=== PATIENT | female | born 1970 | race Caucasian/White ===

== ENCOUNTER 2018-12-09 11:44 | Emergency (ER) | payer OTHER ==
[2018-12-09 11:57] VITALS: BP 144/95; PULSE 74; RESP 20; TEMP 98.3; O2SAT 98
--- NOTE | 2018-12-09 12:36 | C.PDOC ---
History Of Present Illness The patient reports 2 weeks vaginal pain and dysuria, which is associated with vaginal discharge. Patient reports that she went to the [facility] for antibiotics and took them for 5 days without relief. Patient does not remember the name of the medications. Denies fever, vomiting, diarrhea, hematuria. Time Seen by Provider: 12/09/18 12:09 Chief Complaint (Nursing): Female Genitourinary History Per: Patient History/Exam Limitations: no limitations Current Symptoms Are (Timing): Still Present Severity: Mild Quality Of Discomfort: Burning Alleviating Factors: None Recent travel outside of the [place]: No Past Medical History Reviewed: Historical Data, Nursing Documentation, Vital Signs Vital Signs: Last Vital Signs Temp 98.3 F 12/09/18 11:53 Pulse 74 12/09/18 11:53 Resp 20 12/09/18 11:53 BP 144/95 H 12/09/18 11:53 Pulse Ox 98 12/09/18 11:53 - Medical History PMH: HTN Surgical History: Appendectomy Family History: States: No Known Family Hx - Social History Hx Tobacco Use: No Hx Alcohol Use: No Hx Substance Use: No - Immunization History Hx Tetanus Toxoid Vaccination: No Hx Influenza Vaccination: Yes Hx Pneumococcal Vaccination: No Review Of Systems Constitutional: Negative for: Fever, Chills, Weight loss Eyes: Negative for: Pain, Eyelid Inflammation, Redness ENT: Negative for: Ear Pain, Ear Discharge, Throat Pain, Throat Swelling Cardiovascular: Negative for: Chest Pain, Palpitations Respiratory: Negative for: Cough, Shortness of Breath Gastrointestinal: Negative for: Nausea, Vomiting, Abdominal Pain, Diarrhea, Melena, Hematochezia, Hematemesis Genitourinary: Positive for: Dysuria, Vaginal Discharge. Negative for: Frequency, Hematuria, Vaginal Bleeding Musculoskeletal: Negative for: Neck Pain, Shoulder Pain, Back Pain Skin: Negative for: Rash, Lesions Neurological: Negative for: Weakness, Numbness ED Course And Treatment O2 Sat by Pulse Oximetry: 98 (on RA) Pulse Ox Interpretation: Normal Medical Decision Making Medical Decision Making: GC and chlamydia swabs were sent. Patient treated with zithromax and rocephin. Disposition - Disposition [facility] [Outside] Disposition: HOME/ ROUTINE Disposition Time: 13:56 Condition: STABLE Additional Instructions: Usted fue tratado por posibles enfermedades de transmisin sexual. Usted debe contactar a ronny parejas sexuales para ser tratado. Asegrese de adela todos los antibiticos por completo, hasta que el frasco est vaco. No tengas relaciones sexuales hasta completar los antibiticos Follow up with the OBGYN within 1-2 days. Return if worsened. Prescriptions: Ciprofloxacin [Cipro] 1 tab PO BID #14 tab metroNIDAZOLE [Flagyl] 500 mg PO BID #14 tab Instructions: Vaginitis, Urinary Tract Infection, Adult (DC) Forms: [facility] (Sl[place]ak) - Clinical Impression Clinical Impression: Cervicitis, UTI (urinary tract infection)
[2018-12-09] MEDS ORDERED: cefTRIAXone (Rocephin) 250 mg Inj IM STA (13:18)
[2018-12-09 13:34] LABS: HCG,QUALITATIVE URINE NEGATIVE (NEGATIVE)
[2018-12-09 13:42] LABS: SQUAMOUS EPITHIAL 5 /hpf (0-5); URINE BACTERIA OCC (<OCC); URINE BILIRUBIN NEGATIVE (NEGATIVE); URINE BLOOD NEGATIVE (NEGATIVE); URINE CLARITY Clear (Clear); URINE COLOR Straw (YELLOW); URINE GLUCOSE (UA) 3+ mg/dL (Normal); URINE LEUKOCYTE ESTERASE 3+ Leu/uL (Negative); URINE PROTEIN NEGATIVE (NEGATIVE); URINE UROBILINOGEN NORMAL mg/dL (0.2-1.0)
== END 2018-12-09 14:05 | disposition home or self-care (01) ==
LOC: C.ER 11:44
DX: N72 Inflammatory disease of cervix uteri (principal); N39.0 Urinary tract infection, site not specified
CPT/HCPCS: 81001; 84703; 87086; 87491; 87591; 96372; 99284; J0696